=== PATIENT | female | born 1985 | race Caucasian/White ===

== ENCOUNTER 2025-04-27 07:54 | Day surgery (SDC) | payer BC ==
[~2025-04-27 07:54] MED LIST: Lactated Ringers 1,000 ML IV SCH; Sodium Chloride 0.9% 10 ML Syringe FLUSH PRN; Sodium Chloride 0.9% 10 ML Syringe FLUSH SCH
[2025-04-27] MEDS ORDERED: Lactated Ringers 1,000 ML IV ONE (07:55)
[2025-04-27 08:07] LABS: BASOPHILS ABSOLUTE AUTO 0.1 K/mm3 (0.0-0.2); BASOPHILS PERCENT AUTO 0.8 % (0.0-1.0); EOSINOPHILS ABSOLUTE AUTO 0.2 K/mm3 (0.0-0.4); EOSINOPHILS PERCENT AUTO 2.4 % (0.0-6.0); IMMATURE GRAN ABSOLUTE AUTO 0.03 K/mm3 (0.00-0.05); IMMATURE GRAN PERCENT AUTO 0.4 % (0.0-0.4); LYMPHOCYTES ABSOLUTE AUTO 1.6 K/mm3 (1.0-4.8); LYMPHOCYTES PERCENT AUTO 19.8 % (24.0-44.0); MEAN PLATELET VOLUME 10.0 fl (9.4-12.3); MONOCYTES ABSOLUTE AUTO 0.5 K/mm3 (0.0-0.8); MONOCYTES PERCENT AUTO 5.6 % (0.0-8.0); NEUTROPHILS ABSOLUTE AUTO 5.7 K/mm3 (1.8-7.7); NEUTROPHILS PERCENT AUTO 71.0 % (41.0-71.0); NRBC ABSOLUTE 0.00 (0.00-0.02); NRBC PERCENT 0.0 % (0.0-0.2); PLATELET COUNT,PLT 325 K/mm3 (150-400); RED BLOOD CELL COUNT 4.88 M/mm3 (4.10-5.30); WHITE BLOOD CELL COUNT,WBC 8.00 K/mm3 (3.9-11.3)
[2025-04-27 08:20] LABS: BLOOD UREA NITROGEN,BUN 10 mg/dL (7-18); CARBON DIOXIDE,CO2 24 mEq/L (21-32); CHLORIDE,CL 105 mEq/L (98-107); CREATININE 0.7 mg/dL (0.55-1.02); ESTIMATED GFR 111 mL/min (>60); GLUCOSE RANDOM 89 mg/dL (70-99); POTASSIUM,K 3.4 mEq/L (3.5-5.1); SODIUM,NA 140 mEq/L (136-145)
[2025-04-27] MEDS ORDERED: Dexamethasone 4 MG/ML 5 ML MDV ONE (09:14)
[2025-04-27] MEDS ORDERED: Ketamine HCL/NACL, ISO-OSM 50 MG/5 ML Syringe ONE (09:14)
[2025-04-27] MEDS ORDERED: fentaNYL 250 MCG/5 ML SDV ONE (09:14)
[2025-04-27] MEDS ORDERED: Propofol 200 MG/20 ML SDV ONE (09:14)
[2025-04-27] MEDS ORDERED: propofoL 500 MG/50 ML 50 ML ONE (09:14)
[2025-04-27] MEDS ORDERED: Ondansetron 4 MG/2 ML SDV ONE (09:14)
[2025-04-27] MEDS ORDERED: dexmedeTOMIDine HCl 200 MCG/2 ML SDV ONE (09:14)
[2025-04-27] MEDS ORDERED: Glycopyrrolate 0.2 MG/ML 2 ML SDV ONE (10:15)
[2025-04-27] MEDS ORDERED: Lactated Ringers 1,000 ML ONE (10:15)
[2025-04-27] MEDS ORDERED: Ketorolac 30 MG/ML SDV ONE (10:17)
[2025-04-27] MEDS ORDERED: fentaNYL 100 MCG/2 ML SDV IVPUSH PRN (11:32)
[2025-04-27] MEDS ORDERED: Ondansetron 4 MG/2 ML SDV IVPUSH PRN (11:32)
== END 2025-04-27 15:45 | disposition home or self-care (01) ==
LOC: JD.SDS 07:54
PROVIDERS: ATTEND Obstetrics & Gynecology
DX: N80.202 Endometriosis of left fallopian tube, unspecified depth (principal); N83.8 Other noninflammatory disorders of ovary, fallopian tube and broad ligament; N70.11 Chronic salpingitis; N73.6 Female pelvic peritoneal adhesions (postinfective); N83.202 Unspecified ovarian cyst, left side; N83.201 Unspecified ovarian cyst, right side; Z88.1 Allergy status to other antibiotic agents
CPT/HCPCS: 36415; 58661; 58662; 80048; 81025; 85025; 86850; 86900; 86901; J0665; J1100; J1596; J1885; J2405; J2704; J3010; J7120; 00840; J3490